=== PATIENT | male | born 1975 | race Caucasian/White ===

== ENCOUNTER 2023-04-11 06:56 | Emergency (ER) | payer OTHER, SELFPAY ==
--- NOTE | ~2023-04-11 | XR_ITS ---
XR chest 1V portable 04/11/2023 07:20 Indication: Midsternal chest pain Procedure: AP portable chest Comparison: No prior studies for comparison. Findings: Heart size normal. Bilateral perihilar interstitial infiltrates. No pleural effusion or pne umothorax. No acute osseous abnormality. Impression: 1: Bilateral perihilar interstitial infiltrates may represent mild edema or atypical pneumonia. Reviewed, dictated and finalized at location A. Impression: 1: Bilateral perihilar interstitial infiltrates may represent mild edema or atypic al pneumonia.
[2023-04-11 06:59] VITALS: BP 172/110; PULSE 88; RESP 18; TEMP 36.6; O2SAT 100
--- NOTE | 2023-04-11 07:11 | ECG_ITS ---
Measurements Intervals [place] Rate: 87 P: 5 HI: 182 QRS: -72 QRSD: 182 T: 60 QT: 431 QTc: 519 Interpretive Statements SINUS RHYTHM RIGHT BUNDLE BRANCH BLOCK LEFT ANTERIOR FASCICULAR BLOCK ANTEROLATERAL ST ELEVATION MYOCARIDAL INJURY- ACUTE HIGH LATERAL ST ELEVATION MYOCARDIAL INJURY- ACUTE BASELINE ARTIFACT- I, II, III ABNORMAL ECG NO PREVIOUS ECG AVAILABLE FOR COMPARISON Electronically Signed On 04-11-2023 8:15:02 CDT by Francesco Mauro D.O.
[2023-04-11 07:15] VITALS: BP 150/102; PULSE 95
[2023-04-11 07:20] VITALS: BP 150/102; PULSE 94
[2023-04-11] MEDS: HEPARIN SODIUM 5,000 UNITS/ML VIAL 5000 UNITS (07:21)
[2023-04-11] MEDS: ASPIRIN 81 MG CHEWABLE TABLET 324 MG PO (07:21)
[2023-04-11] MEDS: TICAGRELOR 90 MG TABLET 180 MG PO (07:22)
--- NOTE | 2023-04-11 07:23 | ED.GENADULT ---
HPI - General Adult General Chief complaint: Chest Pain Stated complaint: Chest Tightness Time Seen by Provider: 04/11/23 07:09 History of Present Illness HPI narrative: The patient is an otherwise healthy 48-year-old male who is an active smoker. He has a family history of premature coronary artery disease: His brother at age 45 from an myocardial infarction. The patient is not a diabetic. No history of hypertension or hyperlipidemia. Takes no medications. At 4:30 a.m., the patient has noticed a substernal chest discomfort, radiating down the left arm, associated with diaphoresis and nausea. No emesis. His nausea has subsided. His chest pain continues. No abdominal pain. No fevers or chills. No cough. No rhinorrhea. No dyspnea. No other complaints. Related Data Home Medications Medication Instructions Recorded Confirmed No Home Medications 04/11/23 04/11/23 Allergies Allergy/AdvReac Type Severity Reaction Status Date / Time No Known Allergies Allergy Verified 04/11/23 07:04 Review of Systems Review of Systems: All systems reviewed & are unremarkable except as noted in HPI and below Constitutional: Constitutional: Denies chills, Denies excessive sweating, Denies fatigue, Denies fever(s), Denies headache(s) and Denies weakness Eyes: Eyes: Denies change in vision and Denies photophobia ENT: Denies dysphagia, Denies dizziness, Denies headache(s), Denies lip swelling, Denies nasal congestion, Denies sore throat and Denies tongue swelling Cardiovascular: Cardiovascular: Reports chest pain, Denies syncope, Denies rapid heart rate and Denies dyspnea Respiratory: Respiratory: Denies cough, Denies dyspnea and Denies wheezing Gastrointestinal: Gastrointestinal: Denies abdominal pain, Denies constipation, Denies dysphagia, Denies diarrhea, Reports nausea and Denies vomiting Genitourinary: Genitourinary: Denies hematuria, Denies dysuria, Denies urinary frequency and Denies urinary urgency Musculoskeletal: Musculoskeletal: Denies back pain, Denies myalgias, Denies arthralgias, Denies joint swelling and Denies numbness Integumentary/Breasts: Skin/Breast: Denies pruritus, Denies erythema and Denies rash Neurologic: Denies confusion, Denies dizziness, Denies syncope, Denies headache(s), Denies focal weakness, Denies numbness and Denies weakness Psychiatric: Psychiatric: Denies anxiety and Denies confusion Endocrine: Endocrine: Denies excessive sweating and Denies fatigue Hematologic/Lymphatic: Hematologic/Lymphatic: Denies easy bleeding and Denies easy bruising Allergic/Immunologic: Allergic/Immunologic: Denies lip swelling, Denies tongue swelling and Denies wheezing Exam Const: General: healthy appearing, no acute distress, alert and well nourished Nutritional Appearance: well nourished Orientation/consciousness: patient oriented x3 Limitations: no limitations HENMT: Head: normal to inspection Ears: external ears normal Face/Nose/Sinus: normal facial exam Face and sinus: normal facial exam Mouth: Yes moist mucous membranes Throat: posterior oropharynx normal Eyes: Conjunctivae: conjunctivae normal Pupils: Equal, round and reactive pupils present EOM: EOMs intact bilaterally Neck: Neck: normal visual inspection and no meningeal signs Chest: Chest palpation & inspection: normal inspection of the chest and no tenderness Resp: Effort & Inspection: normal respiratory effort and not labored Auscultation: clear to auscultation bilaterally, no crackles, no rhonchi and no wheezes Cardio: Rate: regular rate Rhythm: regular rhythm Heart sounds: no murmurs GI: Inspection: non-distended GI Palp: Yes Soft to palpation, No Tenderness to palpation present (GI), No Guarding due to palpation present (GI) and No Rebound tenderness present : General: Yes no CVA tenderness Back/Spine/Pelvis: Back: no CVA tenderness Cervical Spine: No Cervical spine tenderness Thoracic/Lumbar Spine: No thoracic spi
[2023-04-11] MEDS: NITROGLYCERIN SL 0.4 MG TABLET SUBLINGUAL (07:26)
[2023-04-11 07:29] VITALS: BP 114/73; PULSE 77
[2023-04-11] MEDS: NITROGLYCERIN/D5W 200 MCG/ML 50 MG/250 ML BTL IV CONT (07:29)
[2023-04-11] MEDS: HEPARIN SOD/D5W 100 UNITS/ML 25,000 UNITS/250 ML BAG 10 UNITS (07:32)
[2023-04-11 07:33] VITALS: BP 145/93; PULSE 92; RESP 20; O2SAT 95
[2023-04-11 07:46] VITALS: PULSE 93
== END 2023-04-11 07:38 | disposition short-term general hospital (02) ==
PROVIDERS: Emergency Provider Emergency Medicine; PCP Family Medicine
DX: I21.3 ST elevation (STEMI) myocardial infarction of unspecified site (principal)
CPT/HCPCS: 71045; 93005; 96374; 96375; 99291; A9270; J1644

== ENCOUNTER 2023-04-11 08:02 | Inpatient (IN) | payer OTHER, SELFPAY ==
[2023-04-11] VITALS (20 sets, daily range): BP systolic 110–149; BP diastolic 73–106; PULSE 66–92; RESP 10–20; TEMP 36.9; O2SAT 94–98; BMI 25.9
--- NOTE | 2023-04-11 08:08 | PM.IMHP ---
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 Patient presented to [facility] with complaints of chest pain that started early childhood worker associated with diaphoresis, and nausea. He denied associated symptoms including shortness of breath, palpitation, dizziness or syncope. EKG at [place] which I personally evaluated showed sinus rhythm, right bundle-branch block, ST elevation in the anterolateral leads. Cardiac catheterization lab was activated and patient was transferred to [facility]. Patient received aspirin, loading dose of ticagrelor, and heparin in the [facility]. He was also given nitroglycerin for chest discomfort. At the time of evaluation in the paint laboratory technician, patient had ongoing chest discomfort. Patient underwent emergent coronary angiogram which showed 100% thrombotic occlusion of large caliber OM1 branch. No other significant obstructive CAD. He underwent primary PCI/ EDY x1 in the proximal -mid segment of the OM1 branch with [employer] of CARMELO 3 flow. LV segmental wall motion abnormality with apical hypokinesis, LVEF about 60 %, LVEDP 6 mmHg. Patient had improvement in his chest discomfort after completion of PCI. He remained hemodynamically stable. Review of Systems Review of Systems: General: Negative for fever, chills, fatigue Psychological: Negative for anxiety, depression Ophthalmic: negative for loss of vision ENT: Negative for epistaxis, headaches Allergy and immunology: Negative for hives, nasal congestion Hematologic and lymphatic: Negative for overt bleeding problems Endocrine: Negative for hot flashes, palpitations Respiratory: Negative for cough, hemoptysis Cardiovascular: Positive for chest pain, diaphoresis Gastrointestinal: positive for nausea without vomiting Musculoskeletal: Negative for myalgia, joint pains Neurological: Negative for weakness Dermatological: Negative for rash, skin discoloration PMFSH Past Medical History Medical History (Updated 04/11/23 @ 09:10 by Rey Figueroa MD) No significant past medical history Surgical History Surgical History (Updated 04/11/23 @ 09:09 by Rey Figueroa MD) No significant past surgical history Family History Family History (Updated 04/11/23 @ 08:16 by Rey Figueroa MD) Sibling Acute myocardial infarction Social History Social History (Updated 04/11/23 @ 08:16 by Rey Figueroa MD) Smoking status: Current every day smoker Alcohol intake: current Substance use: never Meds Home Medications and Allergies Home Medications Medication Instructions Recorded Confirmed Type No Home Medications 04/11/23 04/11/23 History Allergies Allergy/AdvReac Type Severity Reaction Status Date / Time No Known Allergies Allergy Verified 04/11/23 07:04 Exam Narrative: PHYSICAL EXAMINATION: GENERAL: Alert, oriented, mild distress due to chest pain MENTAL STATUS: anxious EYES: Extraocular movements intact, no pallor EARS: External ears appear normal, hearing grossly normal NOSE: Normal and patent, no discharge MOUTH: Mucous membranes moist, tongue normal NECK: Supple, no JVD CHEST: Good respiratory effort, clear to auscultation HEART: Normal rate, regular rhythm, distant heart sounds ABDOMEN: Soft, nontender NEUROLOGICAL: Alert, oriented, normal speech, no gross motor deficits MUSCULOSKELETAL: No major deformity, no amputation EXTREMITIES: No pedal edema, no clubbing, no cyanosis SKIN: no rash on the exposed area, no cyanosis; warm extremities PSYCHIATRIC: Normal mood, appropriate affect Assessment and Plan Assessment and plan (1) No significant past medical history: Status: Acute (2) ST elevation myocardial infarct
--- NOTE | 2023-04-11 09:13 | WPDCARDPROC ---
Cardiac Cath Procedure Note Date of procedure:: 04/11/23 Performing physician:: Rey Figueroa MD Procedure Procedure performed:: EMERGENT CARDIAC CATHETERIZATION AND PERCUTANEOUS CORONARY INTERVENTION REPORT DATE OF PROCEDURE: 04/11/2023 INDICATION FOR PROCEDURE: ACUTE CORONARY SYNDROME-LATERAL ST-ELEVATION GA BRIEF CLINICAL HISTORY: 48-year-old male with no known prior cardiac history; family history of early CAD, tobacco abuse. 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 and nausea.?EKG at [place] showed sinus rhythm, right bundle-branch block, ST elevation in the lateral leads.? Cardiac catheterization lab was activated and patient was transferred to [facility].? Patient received aspirin, loading dose of ticagrelor, and heparin in the [facility].? He was also given nitroglycerin for chest discomfort.? PROCEDURES PERFORMED: 1. Left heart catheterization- Selective left and right coronary angiogram; left ventriculogram and hemodynamic assessment 2. Percutaneous coronary intervention- balloon angioplasty and stenting of totally occluded OM 1 branch of left circumflex artery using a 3.5 x 22 mm Medtronic elvin zotarolimus eluting stent (ZES) with [employer] of CARMELO 3 flow 3. Deployment of Mynx vascular closure device 4. Moderate sedation-CPT code 95844 MODERATE SEDATION: Midazolam 1 mg; fentanyl 25 mcg. Start time 0821 , Stop time 0856 ; Total [id number] time 35 minutes; Izzy Cohen RN was trained observer for moderate sedation. ACCESS SITE: Right common femoral artery PROCEDURE NOTE: Patient was brought brought to catheterization lab and prepped and draped in a usual sterile manner. After local anesthesia with lidocaine, right common femoral artery access was taken with micropuncture needle followed by insertion of a 6 Lebanese sheath. Selective left and right coronary angiogram was performed using 6 Lebanese 3.5 CLS guide catheter and 5 Lebanese JR4 catheters respectively. Orthogonal views were taken. After completion of PCI, 5 Lebanese pigtail catheter was advanced in the LV cavity and was flushed with normal saline. LV pressure measurement was performed. After this, left ventriculogram was performed. The catheter was flushed again, and gradient across the aortic valve was measured on the pullback of the catheter. The angiographic findings and details of intervention are given below. FINDINGS: LEFT MAIN CORONARY: Medium caliber vessel, no significant focal stenosis. The vessel bifurcates into LAD and left circumflex branches. LEFT ANTERIOR DESCENDING ARTERY: Medium caliber vessel with minor irregularities in the proximal segment. The vessel tapers distally and barely reaches the apex. Major diagonal branch is a medium caliber vessel. LEFT CIRCUMFLEX ARTERY: Medium to large caliber vessel. OM 1 branch is totally occluded in the proximal segment-infarct related vessel. OM2 branch is a medium to large caliber vessel with about 30% diffuse plaque in the proximal segment. OM 3 branch is a small-caliber vessel. RIGHT CORONARY ARTERY: A large caliber dominant, tortuous vessel. Minor irregularities are seen in the mid segment. Vessel gives rise to medium caliber PDA and PLV branches. LEFT VENTRICULOGRAM: LV segmental wall motion abnormalities seen with hypokinesis of apical segments; overall systolic function preserved with ejection fraction about 60%, LVEDP 6 mmHg. HEMODYNAMIC ASSESSMENT: Opening pressure 150/100 mmHg , closing pressure 110/78 mmHg , LVEDP 6 mmHg; no significant gradient across aortic valve on the pullback of pigtail catheter. INTERVENTION REPORT: patient had already received aspirin and ticagrelor prior to arrival to the manufacturing lab technician. Bivalirudin was used for pressure anticoagulation. Left main coronary artery ostium was selectively engaged using 6 Fr
--- NOTE | 2023-04-11 09:46 | PC.NURSE ---
This patient, Baljinder Willams, was admitted to Intensive Care Unit-3. Patient/family oriented to hospital policies and general routines including ID bracelet, bed and alarms, visiting hours, pain management, procedures, bathroom and other care routines, personal items, smoking policy, room service/diet, and visiting hours. Information on how to activate the Rapid Response Team has been discussed. Patient/Family are encouraged to report perceived risks to care and to ask questions if they do not understand what they are told or what they should do.
--- NOTE | 2023-04-11 09:47 | ECG_ITS ---
Measurements Intervals [place] Rate: 70 P: 13 UT: 213 QRS: 210 QRSD: 179 T: 22 QT: 438 QTc: 475 Interpretive Statements SINUS RHYTHM WITH FIRST DEGREE AV BLOCK RIGHT BUNDLE BRANCH BLOCK LEFT POSTERIOR FASCICULAR BLOCK ABNORMAL ECG COMPARED TO ECG 04/11/2023 07:04:06 FIRST DEGREE AV BLOCK NOW PRESENT Electronically Signed On 04-11-2023 13:29:32 CDT by Francesco Mauro D.O.
--- NOTE | 2023-04-11 10:03 | WPDCNINT ---
Assessment and Plan Assessment and plan (1) ST elevation myocardial infarction (STEMI): Code(s): I21.3 - ST elevation (STEMI) myocardial infarction of unspecified site Status: Acute Assessment and Plan: Status post PCI of OM1 x1 EDY ICU telemetry monitoring Continue dual antiplatelet therapy with aspirin ticagrelor, beta-loreta, ARB, high-dose statin. Check echo Labs ordered and pending (2) Tobacco abuse: Code(s): Z72.0 - Tobacco use Status: Acute Assessment and Plan: Patient was counseled and encouraged to quit smoking (3) COPD (chronic obstructive pulmonary disease): Code(s): J44.9 - Chronic obstructive pulmonary disease, unspecified Status: Acute Assessment and Plan: Patient does not have diagnosis of COPD but it has been heavy smoker. On exam patient has bilateral wheezing. Recommended patient to get PFTs done as an outpatient. Order bronchodilators S p.r.n. at this time Plan DVT prophylaxis -received heparin Nutrition -heart healthy diet Code Status - Full Code Renal Case Manager Consult Note Consult date: 04/11/23 Reason for consult: STEMI HPI: Baljinder Willams is a 48 year old male with no significant past medical history but history of heavy smoking presented early this morning to the [place] [facility] with chief complaint of chest pain. Chest pain was substernal in location, heaviness in quality, radiated to left arm, 7-8 out of 10 in severity and was associated with diaphoresis and nausea. patient denied any shortness of breath palpitation dizziness. Prior to chest pain this morning patient states that he was asymptomatic and did not had any chest pain shortness of breath nausea vomiting fever cough dyspnea on exertion swelling of legs orthopnea or PND EKG showed ST elevation in anterior lateral leads. Biology with consulted patient was given aspirin Brilinta and started on heparin and nitroglycerin infusion and transferred to [facility]. Patient underwent emergent coronary angiogram which showed 100% thrombotic occlusion of OM 1 branch. Patient and PCI and EDY was placed. LV-gram showed apical hypokinesis with EF of 60% and LVEDP of 6. Patient now admitted to ICU for further evaluation management. He states the pain has improved significantly and is now only 2/10. He denies any other complaints and all the systems were reviewed and were negative Review of Systems Review of Systems: All systems reviewed & are unremarkable except as noted in HPI and below (HPI) [facility] Past Medical History Medical History No significant past medical history Surgical History Surgical History No significant past surgical history Family History Family History Sibling Acute myocardial infarction Social History Social History Smoking packs per day: 1 Smoking cigarettes per day: 20.0 Years smoked: 30 Smoking pack-years: 30.00 Smoking status: Current every day smoker Tobacco type: cigarettes Alcohol intake: never Substance use: never Substance use type: does not use Lack of Transportation: No Lack of Food: Never True Current Housing: I Have Housing Concerned About Future Housing: No Difficulty Paying Gas/Electric Bills: No Difficulty Paying for Meds: No Currently Unemployed: No Education: High School Diploma/GED Difficulty w/ Childcare or Family Care: No Spiritual care concerns: No Meds Home Medications and Allergies Home Medications Medication Instructions Recorded Confirmed Type No Home Medications 04/11/23 04/11/23 History Allergies Allergy/AdvReac Type Severity Reaction Status Date / Time No Known Allergies Allergy Verified 04/11/23 07:04 Exam Narrative: General: Pt is alert awake and in NAD
[2023-04-11] MEDS: SODIUM CHLORIDE 0.9% IV 1,000 ML 125 ML IV CONT (10:08)
[2023-04-11] MEDS: ATORVASTATIN 40 MG TABLET 80 MG PO (10:19)
[2023-04-11] MEDS: LOSARTAN POTASSIUM 12.5 MG TABLET PO (10:19)
[2023-04-11 10:46] LABS: Basophils Absolute Auto 0.1 K/mm3 (0.0-0.1); Basophils Percent Auto 0.3 % (0.2-1.2); Eosinophils Percent Auto 0.1 % (0-4.4); Hematocrit 46.5 % (42.0-52.0); Hemoglobin 16.1 g/dL (14.0-18.0); Immature Granulocyte Absolute 0.05 K/mm3 (0.00-0.031); Immature Granulocyte Percent A 0.3 % (0-0.5); Lymphocytes Absolute Auto 1.72 K/mm3 (0.9-3.2); Lymphocytes Percent Auto 11.6 % (18.3-44.2); Mean Corpuscular HGB Conc 34.6 g/dl (32-36); Mean Corpuscular Hemoglobin 31.2 pg (26-34); Mean Corpuscular Volume 90.1 fl (80-100); Mean Platelet Volume 10.7 fl (7.4-10.4); Monocytes Absolute Auto 0.8 K/mm3 (0.1-0.6); Monocytes Percent Auto 5.7 % (2.6-8.5); Neutrophils Absolute Auto 12.1 K/mm3 (1.3-6.7); Platelet Count Result 248 k/mm3 (150-375); Red Blood Count 5.16 M/mm3 (4.6-6.20); Red Cell Distribution Width 12.4 % (11.5-14.5); White Blood Count 14.8 K/mm3 (4.5-10.0)
[2023-04-11 10:58] LABS: Alanine Aminotransferase 76 U/L (6-50); Alkaline Phosphatase 105 U/L (38-126); Anion Gap 4 mmol/L (8-16); Aspartate Amino Transferase 550 U/L (17-59); Blood Urea Nitrogen 14 mg/dL (9-20); Calcium 8.6 mg/dL (8.4-10.2); Carbon Dioxide 23 mmol/L (22-30); Chloride 105 mmol/L (98-107); Cholesterol 288 mg/dL (0-200); Estimated CRCL calculation 127 ml/min; Estimated Glomerular Filt Rate > 60; Glucose 227 mg/dL (65-110); HDL Direct 32 mg/dL; Potassium 3.9 mmol/L (3.4-5.0); Sodium 132 mmol/L (137-145); Triglycerides 236 mg/dL (<150)
[2023-04-11 11:10] LABS: LDL Cholesterol Direct 205 mg/dL
[2023-04-11 11:17] LABS: Troponin I > 80.000 ng/mL (0.000-0.034)
[2023-04-11] MEDS: NITROGLYCERIN SL 0.4 MG TABLET SUBLINGUAL (11:34)
[2023-04-11] MEDS: MORPHINE SULFATE (*CRX) 2 MG/ML INJ IV PUSH (11:46)
[2023-04-11 11:48] LABS: Hemoglobin A1C 9.5 % (<5.7)
--- NOTE | 2023-04-11 12:25 | ECG_ITS ---
Measurements Intervals [place] Rate: 74 P: 42 TN: 215 QRS: 200 QRSD: 177 T: 34 QT: 437 QTc: 486 Interpretive Statements SINUS RHYTHM WITH FIRST DEGREE AV BLOCK RIGHT BUNDLE BRANCH BLOCK LEFT POSTERIOR FASCICULAR BLOCK BASELINE ARTIFACT- I, II, III, AVR, AVL, AVF ABNORMAL ECG COMPARED TO ECG 04/11/2023 09:48:45 NO SIGNIFICANT CHANGES Electronically Signed On 04-11-2023 13:39:03 CDT by Francesco Mauro D.O.
--- NOTE | 2023-04-11 12:37 | P.PNCROSS_ITS ---
Event Note Event Note Event Note: Pt was taken off his nitroglycerin drip after admission to the ICU, when his CP had been reduced to 2/10. EKG done at 9:47 a.m. on my personal review shows resolution to ST elevation, but he has developed 31st degree AV block and a more rightward axis. He later complained of recurrence of chest pain, now 7/10. Did not respond to nitroglycerin. Patient appeared more comfortable after morphine but states the chest discomfort is still persistent. On exam the pt does not ap pear to be in any distress, skin warm and dry, heart RRR w/o ruub or murmur, lungs clear, BP and HR WNL. Repeat EKG done at 12 30 8:00 p.m. shows no significant change compared to the prior tracing, no recurrent ST elevation. Will cont to treat symptomatically. In addition, A1C is elevated at 9.5; will consult hospitalists for assistance in managing new onset DM.
[2023-04-11] MEDS: NITROGLYCERIN/D5W 200 MCG/ML 50 MG/250 ML BTL IV CONT (12:40)
--- NOTE | 2023-04-11 13:28 | PM.IMCN ---
Assessment and Plan Assessment and plan (1) ST elevation myocardial infarction (STEMI): Code(s): I21.3 - ST elevation (STEMI) myocardial infarction of unspecified site Status: Acute Assessment and Plan: as mentioned above the patient is troponin was greater than 80 at [facility]. The patient was then transferred to [facility] as a STEMI. The patient was taken to the cardiac catheterization lab and 1 stent was placed as mentioned above. His dressing to the right growing is dry and intact without any drainage. I discussed the importance of taking all his medications every day. The patient is currently on an aspirin, Lipitor, losartan, Lopressor, and Brilinta. I explained the importance of following up with the primary care doctor's well as a rn testing into taking his medications routinely. The patient had been fairly healthy and now has multiple health issues. I realized this can be quite overwhelming at times. However explained the importance of routine medical care as well as medications. Cardiology is managing his cardiac event. An echo has been ordered. (2) DM2 (diabetes mellitus, type 2): Code(s): E11.9 - Type 2 diabetes mellitus without complications Status: Acute Assessment and Plan: The patient is newly diagnosed diabetes. His blood sugars were over 200. His A1c was found to be 9.5. We discussed diet and medications. Since the patient just had a cardiac catheterization today we will hold off on metformin. May consider starting metformin prior to discharge. I explained that we will need to give lower doses and that he will need a primary care doctor to follow-up with so that he can have his medications increased. This medication can cause some diarrhea at times and it may take some time to adjust to this medication. Just so he is aware that diarrhea is a common side effect. We discussed diet and exercise. Dietitian consult was greatly be appreciated statue maker would greatly be appreciated as well. I stressed the importance of monitoring his blood sugars every day and that the statue maker should give him a glucose monitor. At this time the patient is on Accu-Cheks AC and HS with sliding scale insulin and hypoglycemic protocol. (3) COPD (chronic obstructive pulmonary disease): Code(s): J44.9 - Chronic obstructive pulmonary disease, unspecified Status: Acute Assessment and Plan: P.r.n. albuterol inhaler. Encouraged smoking cessation. We did discuss smoking cessation for less than 5 minutes. HPI Data of Consult Consult date: 04/11/23 Requesting Physician: Rey Figueroa MD Primary Care Provider: Rajinder Faria, Consult Narrative Narrative: Baljinder Willams is a 48 year old male who was awoken at 4:30 a.m. this morning with substernal chest pain that radiated down his left arm associated with diaphoresis and nausea. He had no emesis at the time. Patient has no prior medical history. He does have a past medical history of coronary artery disease and a brother at the age of 45 with a myocardial infarction. The patient is a heavy smoker but does not take any medications on a daily basis. His EKG showed an acute ST elevation myocardial infarction in the anterior leads V4 V5 and V6 in the setting of right bundle-branch block. The patient had been At [facility]. Dr. Figueroa was notified about this STEMI the patient received an aspirin, Brilinta as well as a bolus of heparin. He also had a nitroglycerin infusion. The patient was transferred to [facility] and taken to the cardiac catheterization lab. As per Dr. Figueroa's note At the time of evaluation in the director of cardiac cath lab, patient had ongoing chest discomfort.? Patient underwent emergent coronary angiogram which showed 100% thrombotic occlusion of large caliber OM1 branch.? No other significant obstructive CAD.? He underwent primary PCI/ EDY x1 in the
--- NOTE | 2023-04-11 14:21 | PC.NURSE ---
Patient continues to complain of chest pressure central chest 06/07 after sl nitro and morphine. Dr. Shaver here to see patient and restarted on nitro drip.
--- NOTE | 2023-04-11 14:49 | PC.NURSE ---
[facility] flyer was given to patient.
--- NOTE | 2023-04-11 14:49 | PC.NURSE ---
Information given to patient on his new medications.
[2023-04-11 14:50] LABS: Anion Gap 9 mmol/L (8-16); Blood Urea Nitrogen 13 mg/dL (9-20); Calcium 8.6 mg/dL (8.4-10.2); Carbon Dioxide 18 mmol/L (22-30); Chloride 105 mmol/L (98-107); Estimated CRCL calculation 110 ml/min; Estimated Glomerular Filt Rate > 60; Glucose 272 mg/dL (65-110); Sodium 132 mmol/L (137-145)
[2023-04-11 16:11] LABS: Glucose Point of Care 282 mg/dl (65-105)
[2023-04-11] MEDS: INSULIN ASPART (*BKC) 100 UNITS/ML SUB-Q ×2 (16:34→20:35)
[2023-04-11] MEDS: METOPROLOL TARTRATE 25 MG TABLET PO (20:31)
[2023-04-11] MEDS: TICAGRELOR 90 MG TABLET PO (20:32)
[2023-04-11 20:36] LABS: Glucose Point of Care 213 mg/dl (65-105)
[2023-04-12] VITALS (23 sets, daily range): BP systolic 99–145; BP diastolic 62–94; PULSE 66–87; RESP 14–20; TEMP 36.1–37.1; O2SAT 94–100; BMI 25.9
--- NOTE | 2023-04-12 | ECHO_ITS ---
Patient Info Name: Baljinder Willams Age: 48 years : 1975 Gender: Male Ht: 69 in Wt: 175 lbs BSA: 1.98 m2 HR: 67 bpm BP: 131 / 89 mmHg Heart Rhythm: Sinus Rhythm Technical Quality: Good Exam Date: 04/12/2023 8:00 AM Exam Location: [facility] Pulmonary Patient Status: Inpatient Admit Date: 04/11/2023 Staff Ordering Physician: Cipriano Bailey MD Relay Associate: Christina Fraga RDCS Attending Provider: Rey Figueroa MD Exam Type: CA echo doppler color flow Study Info Indications - STEMI Complete two-dimensional, color flow and Doppler transthoracic echocardiogram is performed. Summary 1. Complete two-dimensional, color flow and Doppler transthoracic echocardiogram is performed. 2. Left ventricular chamber dimension is normal. 3. Left ventricular systolic function is normal, estimated at 60-65%. 4. There is mildly increased left ventricular wall thickness. 5. The left ventricular diastolic function is normal. 6. The anterior wall, anterolateral wall, inferolateral wall, and apical cap are hypokinetic. 7. All other murphy appear normal. 8. There is mild mitral valve regurgitation. 9. There is mild tricuspid valve regurgitation. Left Ventricle Left ventricular chamber dimension is normal. Left ventricular systolic function is normal, estimated at 60-65%. There is mildly increased left ventricular wall thickness. The left ventricular diastolic function is normal. The anterior wall, anterolateral wall, inferolateral wall, and apical cap are hypokinetic. All other murphy appear normal. Right Ventricle Right ventricular chamber dimension is normal. Right ventricular systolic function is normal. Left Atria Left atrial chamber dimension is normal. Right Atria Right atrial chamber dimension is normal. Atrial Septum Intact interatrial septum visualized by color flow imaging. Aortic Valve The aortic valve is trileaflet. There is mild aortic valve sclerosis. There is no aortic valve stenosis. There is trace aortic valve regurgitation. Pulmonic Valve The pulmonic valve is normal. There is no pulmonic valve stenosis. There is trace pulmonic regurgitation. Mitral Valve The mitral valve has normal leaflets. There is no mitral valve stenosis. There is mild mitral valve regurgitation. Tricuspid Valve The tricuspid valve leaflets are normal. There is no significant tricuspid valve stenosis. There is mild tricuspid valve regurgitation. No pulmonary hypertension, estimated pulmonary arterial systolic pressure is 27 mmHg. Pericardium/Pleural The pericardium appears normal. There is no pericardial effusion. Inferior Vena Cava Normal inferior vena cava with >50% collapse upon inspiration consistent with normal right atrial pressure, 10 mmHg. Aorta The aortic root size at the sinus of Valsalva is normal. Left Ventricular Outflow Tract Name Value Normal LVOT 2D LVOT Diameter 2.0 cm LVOT Doppler LVOT Peak Gradient 3 mmHg LVOT Mean Gradient 2 mmHg LVOT VTI 16 cm LVOT VTI/AV VTI Ratio 0.6 LVOT Stroke Volume 52 ml LVOT CO
[2023-04-12 04:34] LABS: Basophils Absolute Auto 0.1 K/mm3 (0.0-0.1); Basophils Percent Auto 0.4 % (0.2-1.2); Eosinophils Absolute Auto 0.2 K/mm3 (0-0.3); Eosinophils Percent Auto 1.5 % (0-4.4); Hematocrit 42.9 % (42.0-52.0); Hemoglobin 14.9 g/dL (14.0-18.0); Immature Granulocyte Absolute 0.05 K/mm3 (0.00-0.031); Immature Granulocyte Percent A 0.4 % (0-0.5); Lymphocytes Absolute Auto 2.81 K/mm3 (0.9-3.2); Lymphocytes Percent Auto 20.2 % (18.3-44.2); Mean Corpuscular HGB Conc 34.7 g/dl (32-36); Mean Corpuscular Hemoglobin 31.2 pg (26-34); Mean Corpuscular Volume 89.7 fl (80-100); Mean Platelet Volume 10.8 fl (7.4-10.4); Monocytes Absolute Auto 1.2 K/mm3 (0.1-0.6); Monocytes Percent Auto 8.3 % (2.6-8.5); Neutrophils Absolute Auto 9.6 K/mm3 (1.3-6.7); Neutrophils Percent Auto 69.2 % (45.5-73.1); Platelet Count Result 257 k/mm3 (150-375); Red Blood Count 4.78 M/mm3 (4.6-6.20); Red Cell Distribution Width 12.7 % (11.5-14.5); White Blood Count 13.9 K/mm3 (4.5-10.0)
[2023-04-12 04:47] LABS: Alanine Aminotransferase 81 U/L (6-50); Albumin Level 3.8 g/dL (3.5-5.1); Alkaline Phosphatase 96 U/L (38-126); Anion Gap 6 mmol/L (8-16); Aspartate Amino Transferase 290 U/L (17-59); Blood Urea Nitrogen 10 mg/dL (9-20); Calcium 8.6 mg/dL (8.4-10.2); Carbon Dioxide 22 mmol/L (22-30); Chloride 105 mmol/L (98-107); Estimated CRCL calculation 127 ml/min; Estimated Glomerular Filt Rate > 60; Glucose 195 mg/dL (65-110); Sodium 133 mmol/L (137-145)
[2023-04-12 07:28] LABS: Glucose Point of Care 224 mg/dl (65-105)
--- NOTE | 2023-04-12 08:06 | ECG_ITS ---
Measurements Intervals Gantt Rate: 77 P: 33 CA: 192 QRS: 226 QRSD: 175 T: 0 QT: 429 QTc: 486 Interpretive Statements SINUS RHYTHM RIGHT BUNDLE BRANCH BLOCK LEFT POSTERIOR FASCICULAR BLOCK BASELINE ARTIFACT- I, II ABNORMAL ECG COMPARED TO ECG 04/11/2023 12:36:56 NO SIGNIFICANT CHANGES Electronically Signed On 04-12-2023 12:48:34 CDT by Francesco Mauro D.O.
[2023-04-12] MEDS: INSULIN ASPART (*BKC) 100 UNITS/ML SUB-Q ×2 (08:49→11:36)
--- NOTE | 2023-04-12 08:49 | PM.PNCARD ---
Progress Note: A&P Assessment and Plan (1) STEMI (ST elevation myocardial infarction): Code(s): I21.3 - ST elevation (STEMI) myocardial infarction of unspecified site Status: Acute (2) ST elevation myocardial infarction (STEMI): Code(s): I21.3 - ST elevation (STEMI) myocardial infarction of unspecified site Status: Inactive Plan 48-year-old man with: Coronary artery disease presenting over the weekend for the 1st time with acute ST-elevation [place]. Underwent successful PCI with drug-eluting stent to relatively large OM1 branch. Doing well this morning. IV nitroglycerin is being tapered off and when that has been accomplished she can move out to IMU. Stressed importance of adherence to medical regimen and smoking cessation as well. Pa Mejia MD [facility] Subjective Date/time seen: Date of service: 04/12/23 08:49 Interval history: Follow-up visit in this 48-year-old man with: Acute ST-elevation [place] with occlusion of OM1 branch treated emergently with drug-eluting stent yesterday. Patient has had she mild recurrent pain yesterday afternoon which has been treated with intravenous nitroglycerin. That seems to have resolved as of now. He is free of complaints this morning. Long discussion with the patient about the importance of medication/DA PT and smoking cessation Exam Const: General: comfortable and no acute distress Other: Pleasant well-developed well-nourished white male no distress HENMT: Mouth: Yes moist mucous membranes Eyes: Sclera: sclerae normal Pupils: Equal, round and reactive pupils present Neck: Neck: supple and no JVD Resp: Effort & Inspection: normal respiratory effort Auscultation: clear to auscultation bilaterally Cardio: Rate: regular rate Rhythm: regular rhythm Other: No audible murmur or gallop this morning GI: GI Palp: Yes Soft to palpation Auscultation: normal bowel sounds Skin: General skin exam: normal color Neuro: Other: Alert and oriented x3 Extrem: Other: No edema, good distal pulses Objective Data Vital Signs Vital Signs: Vital Signs - 24 hr 04/11/23 10:00 04/11/23 10:00 04/11/23 11:40 Temperature 36.9 C Pulse Rate 80 80 80 Respiratory Rate 11 L 11 L Blood Pressure 130/77 117/76 Pulse Oximetry 98 97 Oxygen Delivery 04/11/23 12:00 04/11/23 12:40 04/11/23 12:55 Temperature Pulse Rate 83 79 Respiratory Rate Blood Pressure 136/99 H 129/93 H Pulse Oximetry Oxygen Delivery Room Air 04/11/23 12:00 04/11/23 09:30 04/11/23 09:36 Temperature Pulse Rate 66 75 75 Respiratory Rate 16 16 Blood Pressure 135/89 131/82 Pulse Oximetry 98 98 Oxygen Delivery 04/11/23 13:00 04/11/23 14:00 04/11/23 14:00 Temperature Pulse Rate 82 80 80 Respiratory Rate 16 20 Blood Pressure 135/93 H 135/93 H Pulse Oximetry 96 94 Oxygen Delivery 04/11/23 10:15 04/11/23 11:00 04/11/23 12:00 Temperature Pulse Rate 79 73 77 Respiratory Rate 18 15 10 L Blood Pressure 130/77 116/77 112/77 Pulse Oximetry 96 94 97 Oxygen Delivery 04/11/23 12:15 04/11/23 13:15 04/11/23 13:30 Temperature Pulse Rate 72 75 74 Respiratory Rate 11 L 19 19 Blood Pressure 113/84 119/76 110/73 Pulse Oximetry 97 94 94 Oxygen Delivery 04/11/23 16:40 04/11/23 16:00 04/11/23 16:00 Temperature Pulse Rate 88 92 Respiratory Rate Blood Pressure 112/85 Pulse Oximetry Oxygen Delivery Room Air 04/11/23 16:00 04/11/23 18:00 04/11/23 18:00 Temperature Pulse Rate 91 79 79 Respiratory Rate 16 16 Blood Pressure 149/106 H 124/76 Pulse Oximetry 96 95 Oxygen Delivery 04/11/23 20:00 04/11/23 20:00 04/11/23 22:00 Temperature Pulse Rate 71 73 68 Respiratory Rate 16 Blood Pressure 118/81 Pulse Oximetry 96 Oxygen Delivery 04/11/23 22:00 04/11/23 20:31 04/12/23 00:00 Temperature 36.8 C Pulse Rate 70 82 72 Respiratory Rate 16 20 Blood Press
[2023-04-12] MEDS: ASPIRIN 81 MG ENTERIC TABLET PO (08:54)
[2023-04-12] MEDS: ATORVASTATIN 40 MG TABLET 80 MG PO (08:54)
[2023-04-12] MEDS: TICAGRELOR 90 MG TABLET PO ×2 (08:54→20:42)
--- NOTE | 2023-04-12 09:28 | WPDINTPN ---
Progress Note: A&P Assessment and Plan (1) ST elevation myocardial infarction (STEMI): Code(s): I21.3 - ST elevation (STEMI) myocardial infarction of unspecified site Status: Inactive Assessment and Plan: Status post PCI of OM1 x1 EDY ICU telemetry monitoring Continue dual antiplatelet therapy with aspirin ticagrelor, beta-loreta, ARB, high-dose statin. Echo was done this morning and report is pending Chest pain is resolved and nitroglycerin is being weaned (2) Tobacco abuse: Code(s): Z72.0 - Tobacco use Status: Inactive Assessment and Plan: Patient was counseled and encouraged to quit smoking (3) COPD (chronic obstructive pulmonary disease): Code(s): J44.9 - Chronic obstructive pulmonary disease, unspecified Status: Acute Assessment and Plan: Patient does not have diagnosis of COPD but it has been heavy smoker. On admission on exam patient had bilateral wheezing. Recommended patient to get PFTs done as an outpatient. p.r.n. bronchodilators are ordered at this time (4) DM2 (diabetes mellitus, type 2): Code(s): E11.9 - Type 2 diabetes mellitus without complications Status: Acute Assessment and Plan: Patient had HbA1c of 9 and elevated blood sugar on lab testing Dietitian and ems educator has been consulted Currently on sliding scale insulin Will defer initiation of oral hypoglycemics by internal medicine physicians as patient will be transfer out of ICU today Plan DVT prophylaxis -patient is ambulating Nutrition -heart healthy diet Code Status - Full Code Transfer out of ICU today once nitroglycerin infusion is weaned off and patient is chest pain-free Subjective Date/time seen: 04/12/23 Overnight events reviewed. Afebrile Patient on nitroglycerin infusion overnight states the pain has completely resolved this morning and denies any complaints. Patient denies fever, chest pain, shortness of breath, cough, nausea vomiting, abdominal pain,, diarrhea, headache or constipation. All other systems were reviewed and were negative Sinus rhythm on the monitor. On room air Tolerating p.o. diet and good urine output Other Vitals acceptable except blood pressure is slightly on the elevated side morning Review of Systems Review of Systems: All systems reviewed & are unremarkable except as noted in HPI and below (HPI) Exam Narrative: General: Pt is alert awake and in NAD Lungs/Chest: Trachea central Clear BS B/L, no wheezing on exam today Cardiac: RRR. Normal S1 S2. No murmurs Circulation: Pedal pulses are intact and symmetrical. Abdomen: Normal bowel sounds.. Soft. NT. ND. Extremities: No clubbing, cyanosis or edema. Warm right groin has dressing and a cardiac catheterization site no swelling or hematoma seen : Darby in place Neurologic: Follows commands. Moves all 4 extremities PERRL AO x3 Skin: No Rash Objective Data Vital Signs Vital Signs: Vital Signs - 24 hr 04/11/23 10:00 04/11/23 10:00 04/11/23 11:40 Temperature 36.9 C Pulse Rate 80 80 80 Respiratory Rate 11 L 11 L Blood Pressure 130/77 117/76 Pulse Oximetry 98 97 Oxygen Delivery 04/11/23 12:00 04/11/23 12:40 04/11/23 12:55 Temperature Pulse Rate 83 79 Respiratory Rate Blood Pressure 136/99 H 129/93 H Pulse Oximetry Oxygen Delivery Room Air 04/11/23 12:00 04/11/23 09:30 04/11/23 09:36 Temperature Pulse Rate 66 75 75 Respiratory Rate 16 16 Blood Pressure 135/89 131/82 Pulse Oximetry 98 98 Oxygen Delivery 04/11/23 13:00 04/11/23 14:00 04/11/23 14:00 Temperature Pulse Rate 82 80 80 Respiratory Rate 16 20 Blood Pressure 135/93 H 135/93 H Pulse Oximetry 96 94 Oxygen Delivery 04/11/23 10:15 04/11/23 11:00 04/11/23 12:00 Temperature Pulse Rate 79 73 77 Respiratory Rate 18 15 10 L Blood Pressure 130/77 116/77 112/77 Pulse Oximetry 96 94 97 Oxygen Delivery 04/11/23 12:15 04/11/23 13:1
[2023-04-12] MEDS: METOPROLOL SUCCINATE EXT REL 50 MG TABCR PO (09:53)
[2023-04-12] MEDS: LOSARTAN POTASSIUM 25 MG TABLET PO (09:53)
--- NOTE | 2023-04-12 11:34 | PM.IMPN ---
Progress Note: A&P Assessment and Plan (1) STEMI (ST elevation myocardial infarction): Code(s): I21.3 - ST elevation (STEMI) myocardial infarction of unspecified site Status: Acute (2) DM2 (diabetes mellitus, type 2): Code(s): E11.9 - Type 2 diabetes mellitus without complications Status: Acute (3) COPD (chronic obstructive pulmonary disease): Code(s): J44.9 - Chronic obstructive pulmonary disease, unspecified Status: Acute Plan # STEMI -status post PCI of OM1 with drug-eluting stent 04/11/[address] Figueroa -dual anti-platelet therapy with aspirin, Brilinta for the new drug-eluting stent -we are weaning off nitroglycerin this morning -uptitrate Cozaar to 25 mg daily, metoprolol succinate to 50 mg daily -LDL 205, started Lipitor 80 mg -echocardiogram pending -monitoring on telemetry # newly diagnosed type 2 diabetes -hemoglobin A1c is 9.5 -patient has seen agricultural extension educator, patient educated on glucometer -starting metformin 500 mg b.i.d. -patient will need to establish care with PCP for further management diabetes # nicotine dependence - stressed importance of smoking cessation Diet: Heart healthy DVT prophylaxis: Ambulatory Code status: Full code Disposition: Transfer out of ICU to IMU, home in 1-2 days Subjective Date/time seen: 04/12/23 11:34 Interval history: Patient seen and examined. Patient admitted yesterday with STEMI and had heart catheterization with a new stent placed in totally occluded OM1 brach of L circumflex artery. patient has been weaned off nitroglycerin drip today. Will transition out of ICU to IMU. He denies fever, chills, nausea vomiting, diarrhea, chest pain. Patient new diabetic with hemoglobin A1c 9.5, will start with metformin 500 mg b.i.d.. He will need to be started on other antiglycemic and establish care with PCP. Continue sliding scale insulin. Blood sugars from 190-270. Family updated at bedside. Review of Systems Review of Systems: 10 point ROS complete, negative other than what is specified in HPI. Exam Narrative: - GENERAL: Pleasant male in no acute distress. - EYES: EOMI. Anicteric. - HENT: Moist mucous membranes. - LUNGS: Clear to auscultation bilaterally, no wheezing, rhonchi, or rales. - CARDIOVASCULAR: Regular rate and rhythm. No murmur. No JVD. - ABDOMEN: Soft, non-tender and non-distended. No palpable masses. - EXTREMITIES: No edema. Peripheral pulses 2+. Non-tender. - NEUROLOGIC: No focal neurological deficits. CN II-XII grossly intact. - PSYCHIATRIC: Awake, Alert and oriented x 3. Appropriate mood and affect. - SKIN: No rashes or lesions. Warm. - LYMPH: No cervical lymphadenopathy. Objective Data Vital Signs Vital Signs: Vital Signs - 24 hr 04/11/23 11:40 04/11/23 12:00 04/11/23 12:40 Temperature 36.9 C Pulse Rate 80 83 Respiratory Rate 11 L Blood Pressure 117/76 136/99 H Pulse Oximetry 97 Oxygen Delivery Room Air 04/11/23 12:55 04/11/23 12:00 04/11/23 13:00 Temperature Pulse Rate 79 66 82 Respiratory Rate 16 Blood Pressure 129/93 H 135/93 H Pulse Oximetry 96 Oxygen Delivery 04/11/23 14:00 04/11/23 14:00 04/11/23 12:00 Temperature Pulse Rate 80 80 77 Respiratory Rate 20 10 L Blood Pressure 135/93 H 112/77 Pulse Oximetry 94 97 Oxygen Delivery 04/11/23 12:15 04/11/23 13:15 04/11/23 13:30 Temperature Pulse Rate 72 75 74 Respiratory Rate 11 L 19 19 Blood Pressure 113/84 119/76 110/73 Pulse Oximetry 97 94 94 Oxygen Delivery 04/11/23 16:40 04/11/23 16:00 04/11/23 16:00 Temperature Pulse Rate 88 92 Respiratory Rate Blood Pressure 112/85 Pulse Oximetry Oxygen Delivery Room Air 04/11/23 16:00 04/11/23 18:00 04/11/23 18:00 Temperature Pulse Rate 91 79 79 Respiratory Rate 16 16 Blood Pressure 149/106 H 124/76 Pulse Oximetry 96 95 Oxygen Delivery 04/11/23 20:00 04/11/23 20:00 04/11/23 22:00 Temperature P
[2023-04-12 11:37] LABS: Glucose Point of Care 210 mg/dl (65-105)
[2023-04-12 16:22] LABS: Glucose Point of Care 194 mg/dl (65-105)
[2023-04-12] MEDS: metFORMIN HCL 500 MG TABLET PO (16:40)
--- NOTE | 2023-04-12 17:07 | PC.NURSE ---
This patient, Baljinder Willams, was transferred to [[id number]] on 04/12/23 at 1707. Personal belongings sent with patient. Report given to [Katalina BOO]. Appropriate documentation sent with patient.
[2023-04-12 20:45] LABS: Glucose Point of Care 186 mg/dl (65-105)
[2023-04-13] VITALS (8 sets, daily range): BP systolic 127–132; BP diastolic 78–84; PULSE 65–87; RESP 20; TEMP 36.9–37; O2SAT 98–100
[2023-04-13 07:23] LABS: Glucose Point of Care 204 mg/dl (65-105)
[2023-04-13] MEDS: METOPROLOL SUCCINATE EXT REL 50 MG TABCR PO (08:49)
[2023-04-13] MEDS: metFORMIN HCL 500 MG TABLET PO (08:49)
[2023-04-13] MEDS: ASPIRIN 81 MG ENTERIC TABLET PO (08:50)
[2023-04-13] MEDS: TICAGRELOR 90 MG TABLET PO (08:50)
[2023-04-13] MEDS: ATORVASTATIN 40 MG TABLET 80 MG PO (08:50)
[2023-04-13] MEDS: LOSARTAN POTASSIUM 25 MG TABLET PO (08:50)
[2023-04-13] MEDS: INSULIN ASPART (*BKC) 100 UNITS/ML SUB-Q (08:51)
--- NOTE | 2023-04-13 09:13 | PM.DS ---
DS: Admitting Diagnosis Discharge Date 04/13/2023 Admitting Diagnosis STEMI DS: Discharge Diagnosis Discharge Diagnosis (1) STEMI (ST elevation myocardial infarction): Code(s): I21.3 - ST elevation (STEMI) myocardial infarction of unspecified site Status: Acute (2) DM2 (diabetes mellitus, type 2): Code(s): E11.9 - Type 2 diabetes mellitus without complications Status: Acute DS: Summary Hospital Course Reason for hospitalization: STEMI Hospital Course: Patient presented with acute ST-elevation [place].? Underwent successful PCI with drug-eluting stent to relatively large OM1 branch. Echocardiogram 04/12 showed LVEF 60-65%. Doing well post PCI. Patient to be on ASA, Brilinta, Atorvastatin, Losartan, Toprol. Status at Discharge Functional status at discharge: independent ambulation Overall status at discharge: patient is back to baseline Time Spent with Patient Time attestation: Total time spent providing and/or coordinating discharge services: Exam Const: General: comfortable and no acute distress HENMT: Mouth: Yes moist mucous membranes Eyes: General: appearance normal, both eyes and all related structures Sclera: sclerae normal Neck: Neck: supple Resp: Effort & Inspection: normal respiratory effort Auscultation: clear to auscultation bilaterally Cardio: Rate: regular rate Rhythm: regular rhythm Skin: General skin exam: normal color Extrem: General: normal to inspection Psych: Mental Status: mental status grossly normal Affect: normal affect DS: Data Data Completed and Pending Labs on day of discharge: Labs from last 24 hours 04/13/23 04/12/23 04/12/23 07:08 20:23 16:05 POC Capillary Glucose 204 H 186 H 194 H 04/12/23 11:30 POC Capillary Glucose 210 H Discharge Plan Discharge Attending physician on discharge: Saud Beltran Consulting providers: Wilfrid Trejo Adarsh Discharging Clinician: Saud Beltran Anticipated Discharge Date/Time: 04/13/23 09:07 Patient Disposition: Home, Self-Care Activity: may shower Diet: heart healthy Discharge Instructions: [facility] [address] [place], [place] [id number] DISCHARGE INSTRUCTIONS - POST PCI Activity 1. No driving until 04/15/23. 2. No lifting, pushing or pulling more than 10 pounds for 1 week. 3. No strenuous exercise or activity (including sexual activity) until you are released to do so. 4. May shower but no tub baths or swimming pool for 1 week. Avoid commercial hot tubs. They are too hot. Medications DO NOT STOP YOUR MEDICATIONS ONLY YOUR SUPERVISOR FISH HATCHERY CAN STOP THE FOLLOWING MEDICATIONS - PLEASE CALL THE OFFICE WITH QUESTIONS. *Aspirin *Ticagrelor (Brilinta) *Atorvastatin *Losartan *Metoprolol Important Reminders 1. Keep your stent card in your wallet at all times 2. Follow a heart healthy diet paying extra attention to cholesterol and fats. 3. Stay hydrated. 4. If you have chest pain unrelieved by rest or nitroglycerin (if prescribed) call 911 immediately. 5. If you miss one dose of Brilinta (if prescribed) take a tablet at the next time due. If you miss 2 doses take a tablet when you remember and resume at the next time due. *For any other questions please call the office at [phone]. Office hours are 8AM 4:30PM Wednesday through Wednesday. Per Care Coordination, you will follow up with the adaptive physical educator and tuber machine operator helper at the [facility] [place]
== END 2023-04-13 10:18 | disposition home or self-care (01) | DRG 247 ==
LOC: ANHED 08:09 → ANHCATHLAB 08:10 → ANHICU 09:42 → ANHIMU 04-12 17:07
PROVIDERS: Internal Medicine; Nurse Practitioner; Admitting Provider Internal Medicine Cardiovascular Disease; Emergency Provider Internal Medicine Cardiovascular Disease; PCP Family Medicine; Visit Provider Internal Medicine
PROC: 4A023N7 Measurement of Cardiac Sampling and Pressure, Left Heart, Percutaneous Approach (ICD-10-PCS; CPT 93452; principal; 2023-04-11 08:00)
PROC: 027034Z Dilation of Coronary Artery, One Artery with Drug-eluting Intraluminal Device, Percutaneous Approach (ICD-10-PCS; 2023-04-11 08:00)
PROC: 027034Z Dilation of Coronary Artery, One Artery with Drug-eluting Intraluminal Device, Percutaneous Approach (ICD-10-PCS; 2023-04-11 08:00)
DX: I21.09 ST elevation (STEMI) myocardial infarction involving other coronary artery of anterior wall (principal); I25.10 Atherosclerotic heart disease of native coronary artery without angina pectoris; E11.9 Type 2 diabetes mellitus without complications; J44.9 Chronic obstructive pulmonary disease, unspecified; F17.210 Nicotine dependence, cigarettes, uncomplicated; Z82.49 Family history of ischemic heart disease and other diseases of the circulatory system
CPT/HCPCS: 36415; 80048; 80053; 80061; 82948; 83036; 83735; 84484; 85025; 93005; 93306; 93458; A9270; C1725; C1760; C1769; C1874; C1887; C1894; C9606; G0269; J0461; J0583; J1644; J1815; J2270; J7030; J7040

== ENCOUNTER 2023-04-15 17:45 | Emergency (ER) | payer OTHER, SELFPAY ==
[2023-04-15 18:07] VITALS: BP 150/96; PULSE 82; RESP 15; TEMP 37; O2SAT 99
[2023-04-15 19:06] LABS: Basophils Absolute Auto 0.1 K/mm3 (0.0-0.1); Basophils Percent Auto 0.4 % (0.2-1.2); Eosinophils Absolute Auto 0.2 K/mm3 (0-0.3); Hematocrit 49.4 % (42.0-52.0); Hemoglobin 17.3 g/dL (14.0-18.0); Immature Granulocyte Absolute 0.08 K/mm3 (0.00-0.031); Immature Granulocyte Percent A 0.5 % (0-0.5); Lymphocytes Absolute Auto 2.27 K/mm3 (0.9-3.2); Lymphocytes Percent Auto 13.7 % (18.3-44.2); Mean Corpuscular Hemoglobin 31.3 pg (26-34); Mean Corpuscular Volume 89.5 fl (80-100); Mean Platelet Volume 10.8 fl (7.4-10.4); Monocytes Absolute Auto 1.1 K/mm3 (0.1-0.6); Monocytes Percent Auto 6.6 % (2.6-8.5); Neutrophils Absolute Auto 12.9 K/mm3 (1.3-6.7); Neutrophils Percent Auto 77.8 % (45.5-73.1); Platelet Count Result 333 k/mm3 (150-375); Red Blood Count 5.52 M/mm3 (4.6-6.20); Red Cell Distribution Width 12.3 % (11.5-14.5); White Blood Count 16.6 K/mm3 (4.5-10.0)
[2023-04-15 19:14] LABS: Alanine Aminotransferase 61 U/L (6-50); Albumin Level 4.7 g/dL (3.5-5.1); Alkaline Phosphatase 101 U/L (38-126); Anion Gap 12 mmol/L (8-16); Aspartate Amino Transferase 57 U/L (17-59); Blood Urea Nitrogen 21 mg/dL (9-20); Calcium 9.5 mg/dL (8.4-10.2); Carbon Dioxide 18 mmol/L (22-30); Chloride 103 mmol/L (98-107); Estimated CRCL calculation 87 ml/min; Estimated Glomerular Filt Rate > 60; Glucose 179 mg/dL (65-110); Lipase 180 U/L (23-300); Potassium 3.7 mmol/L (3.4-5.0); Sodium 133 mmol/L (137-145)
[2023-04-15 19:24] VITALS: BP 142/110; PULSE 78
[2023-04-15 19:26] VITALS: BP 153/133; PULSE 79
[2023-04-15 19:27] VITALS: BP 128/93; PULSE 82
--- NOTE | 2023-04-15 19:35 | PC.NURSE ---
Pt unable to urinate at this time. Offered straight cath but he refused.
--- NOTE | 2023-04-15 19:38 | PC.NURSE ---
Pt reports greater than 10 episodes of liquid diarrhea today. States he was started on metformin earlier this week and believes that is what's causing his symptoms. He denies nausea or vomiting. Denies blood in his stool. Denies abdominal pain. Abdomen soft and non-tender.
--- NOTE | 2023-04-15 19:41 | ED.GENADULT ---
HPI - General Adult General Chief complaint: Nausea/Vomiting/Diarrhea Stated complaint: diarrhea Time Seen by Provider: 04/15/23 19:21 History of Present Illness HPI narrative: Exam patient is a 48-year-old gentleman who presents the emergency department with chief complaint of diarrhea. Patient reports he was just in the hospital after having an AR and was diagnosed with diabetes and started on metformin while in the hospital. Patient reports that since he has been on the metformin he has had diarrhea with every type of oral intake including liquids. Patient reports his abdomen feels crampy but reports no defined abdominal pain. Patient denies fever denies vomiting Related Data Allergies Allergy/AdvReac Type Severity Reaction Status Date / Time No Known Allergies Allergy Verified 04/11/23 07:04 Review of Systems Review of Systems: A 10 system review of systems was completed on the patient and is negative except for what is stated in the HPI. Nursing and ancillary documentation was reviewed. [facility] Past Medical History Medical History (Updated 04/15/23 @ 21:13 by Boo Pickens MD) DM2 (diabetes mellitus, type 2) No significant past medical history Tobacco abuse Surgical History Surgical History (Updated 04/11/23 @ 19:19 by Vaishnavi Leigh NP) H/O cardiac catheterization H/O heart artery stent Family History Family History Sibling Acute myocardial infarction Social History Social History (Updated 04/11/23 @ 19:21 by Vaishnavi Leigh NP) Social History: the patient has never . He has 1 daughter. He continues to smoke a pack a cigarettes a day. He may drink 1 alcoholic beverage once a week. 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 Code status full code Smoking packs per day: 1 Smoking cigarettes per day: 20.0 Years smoked: 30 Smoking pack-years: 30.00 Smoking status: Current every day smoker Tobacco type: cigarettes Alcohol intake: never Substance use: never Substance use type: does not use Lack of Transportation: No Lack of Food: Never True Current Housing: I Have Housing Concerned About Future Housing: No Difficulty Paying Gas/Electric Bills: No Difficulty Paying for Meds: No Currently Unemployed: No Education: High School Diploma/GED Difficulty w/ Childcare or Family Care: No Spiritual care concerns: No Exam Narrative: GENERAL: Well-appearing, well-nourished, and in no acute distress. HEAD: Normocephalic, atraumatic. EYES: PERRLA and EOMI. ENT: Nares clear, no rhinorrhea or epistaxis. Mucous membranes moist. NECK: Supple. CHEST: Clear to auscultation. No respiratory distress. HEART: Regular rate and rhythm. No murmur heard. Normal peripheral pulses. ABDOMEN: Soft, nontender, nondistended, normal active bowel sounds. EXTREMITIES: Normal range of motion. No edema. SKIN: Warm, dry, no rash. NEURO: No focal deficits. Alert and oriented x3. PSYCH: Normal mood and affect. Course Vital Signs Vital signs: Vital Signs Temperature 37.0 C 04/15/23 18:07 Pulse Rate 82 04/15/23 18:07 Respiratory Rate 15 04/15/23 18:07 Blood Pressure 150/96 H 04/15/23 18:07 Pulse Oximetry 99 04/15/23 18:07 Oxygen Delivery Room Air 04/15/23 18:07 Temperature 37.0 C 04/15/23 18:07 Pulse Rate 77 04/15/23 21:13 Respiratory Rate 18 04/15/23 21:13 Blood Pressure 121/90 04/15/23 21:13 Pulse Oximetry 99 04/15/23 21:13 Oxygen Delivery Room Air 04/15/23 18:07 Medical Decision Making [facility] Narrative Medical decision making narrative: Differential diagnosis includes gastroenteritis, colitis, medication side effect. Laboratory studies were obtained on the patient which showed him to have a white blood cell count of 16,000. Hemoglobin was 17.3 electrolytes showed a BUN of 21. The patient received IV fluids and is feeling much better at t
[2023-04-15] MEDS: SODIUM CHLORIDE 0.9% IV 1,000 ML 999 ML IV CONT (19:47)
[2023-04-15 20:57] LABS: Appearance Urine Clear (Clear); Bacteria Urine None Seen /hpf; Bilirubin Urine Negative (Negative); Blood Urine Negative (Negative); Color Urine Yellow (Yellow); Glucose Urine UA Negative (Negative); Ketones Urine Negative (Negative); Leukocyte Esterase Ur Negative LEU/UL (Negative); Need Manual Microscopic Reviewed; Nitrate Urine Negative (Negative); Non Pathogenic Casts 0-2; Protein Urine 1+ mg/dL (Negative); RBC Urine 0-2 /hpf (0-2); Specific Grav Ur 1.007 (1.001-1.035); Squamous Epithelial Cell Urine None seen /hpf (Few); Urobilinogen Urine 0.2 mg/dL (<2.0); WBC Urine 0-5 /hpf; pH Urine 5.5 (5.0-9.0)
[2023-04-15 20:58] LABS: Add Urine Microscopic? YES
[2023-04-15 21:13] VITALS: BP 121/90; PULSE 77; RESP 18; O2SAT 99
--- NOTE | 2023-04-15 21:13 | PC.NURSE ---
PO challenge initiated. Gave pt crackers, applesauce, and water to drink.
[2023-04-15 21:41] VITALS: BP 133/102; PULSE 71; RESP 21; O2SAT 100
== END 2023-04-15 21:42 | disposition home or self-care (01) ==
PROVIDERS: Emergency Medicine; Emergency Provider Emergency Medicine
DX: R19.7 Diarrhea, unspecified (principal); I25.2 Old myocardial infarction; Z95.5 Presence of coronary angioplasty implant and graft; F17.210 Nicotine dependence, cigarettes, uncomplicated; Z79.84 Long term (current) use of oral hypoglycemic drugs; Z79.82 Long term (current) use of aspirin
CPT/HCPCS: 36415; 80053; 81001; 83690; 85025; 96360; 99283; J7030